=== PATIENT | female | born 1985 | race Caucasian/White ===

== ENCOUNTER 2017-01-28 16:06 | Inpatient (IN) | payer OTHER ==
[~2017-01-28] VITALS: Ht 165.1 cm; Wt 141.7 kg
[2017-01-28] MEDS: metFORMIN 500 MG TAB GTB SCH (02:45)
[~2017-01-28 16:06] MED LIST: ACTIGALL PO; CEFAZOLIN 1 GM INJ ONE; FERR27TA PO; PREN1TAB49 PO; SEVOFLURANE 15 MIN ONE
[2017-01-28 16:23] VITALS: BMI 51.7
[2017-01-28 16:28] VITALS: BP 141/70; PULSE 111; RESP 17
[2017-01-28] MEDS ORDERED: NPH,100V SQ (16:40)
[2017-01-28] MEDS ORDERED: METO-448 PO (16:40)
[2017-01-28] MEDS ORDERED: INSU100C SQ (16:40)
[2017-01-28] MEDS ORDERED: LACTATED RINGER'S 1,000 ML IV SCH (17:03)
[2017-01-28] MEDS ORDERED: CEFAZOLIN 2 GM/50 ML (PMX) 50 ML IV SCH (17:30)
[2017-01-28] MEDS ORDERED: CARBOPROST 250 MCG INJ IM PRN ×2 (17:30→22:30)
[2017-01-28] MEDS ORDERED: OXYTOCIN 30 UNITS/LR 500 ML IV PRN ×2 (17:30→22:30)
[2017-01-28] MEDS ORDERED: MISOPROSTOL 200 MCG TAB PR PRN ×2 (17:30→22:30)
[2017-01-28] MEDS ORDERED: METHYLERGONOVINE 0.2 MG INJ IM PRN (17:30)
[2017-01-28 17:38] LABS: ADD SCAN DIFF NO
[2017-01-28 17:40] LABS: BASOPHILS % 0.3 % (0.0-2.0); EOSINOPHILS % 0.5 % (0.0-7.0); HEMATOCRIT 35.4 % (37.0-47.0); LYMPHOCYTES # 1.9 10^3/ul (0.8-2.9); LYMPHOCYTES % 23.7 % (15.0-51.0); MEAN CORPUSCULAR HEMOGLOBIN 30.3 pg (29.0-33.0); MEAN CORPUSCULAR HGB CONC 33.9 g/dl (32.0-37.0); MEAN CORPUSCULAR VOLUME 89.4 fl (82.0-101.0); MEAN PLATELET VOLUME 9.2 fl (7.4-10.4); MONOCYTE # 0.6 10^3/ul (0.3-0.9); MONOCYTES % 7.4 % (0.0-11.0); NEUTROPHIL # 5.3 10^3/ul (1.6-7.5); NEUTROPHILS % 67.5 % (39.0-77.0); PLATELET COUNT 368 10^3/UL (140-415); RED BLOOD COUNT 3.96 10^6/ul (4.20-5.40); RED CELL DISTRIBUTION WIDTH 13.2 % (11.5-14.5); WHITE BLOOD COUNT 7.9 10^3/ul (4.8-10.8)
[2017-01-28 17:53] LABS: ALBUMIN 3.4 g/dl (3.3-4.9); POTASSIUM 4.4 mmol/L (3.5-5.1)
[2017-01-28 17:54] LABS: INR 0.94; PROTIME 12.6 Sec (12.2-14.2)
[2017-01-28 17:55] LABS: CREATININE 0.63 mg/dl (0.44-1.00)
[2017-01-28 17:56] LABS: BILIRUBIN,INDIRECT 0.1 mg/dl (0-1.1); BILIRUBIN,TOTAL 0.1 mg/dl (0.2-1.3); TOTAL PROTEIN 6.8 g/dl (6.1-8.1); URIC ACID 5.2 mg/dl (3.1-7.9)
--- NOTE | 2017-01-28 17:56 | TRIAGE ---
OB Triage Datetime Report Generated by CPN: 01/28/2017 17:55 Datetime: 01/28/2017 17:31 Labor Evaluation Frequency: 2-7 Monitor Mode: External Duration (sec)2399: 80-100 Quality: Moderate Pattern: Normal: <= 5 Contractions in 10 Minutes Resting Tone [place]: Relaxed Heart Rate FHR Baseline Rate: 145 Monitor Mode: External US Variability: Moderate 6-25 bpm Accelerations: 15X15 Decelerations: None Category: Category I Pain Assessment Pain Scale: 8 Pain Presence: Intermittent Pain Type: Contraction Pain Location: Abdomen Pain Goal: 3 Datetime: 01/28/2017 16:35 Vaginal Exam Dilatation (cms): 0.5 Exam By: [facility] Datetime: 10/05/2016 12:22 Time of Arrival: 01/28/2017 16:05 EGA: 38.5 Arrived By: Ambulatory Arrived From: Home Chief Complaint: pt. came to hospital c/o vag bleeding started an hour ago Movement: Present Contractions: Irregular Rupture of Membranes: Denies Vaginal Discharge: Denies Recent Sexual Intercouse: Denies Abdominal Trauma: Not Applicable Patient Complaints: Contractions; Other Initial Plan: R/O LABOR Datetime: 10/05/2016 10:33 EGA: 22.2 Fall Risk Assessment Fall Score: 0 Fall Risk Score Definition: No Risk: No action required
[2017-01-28 17:57] LABS: PARTIAL THROMBOPLASTIN TIME 27.8 Sec (25.0-35.0)
[2017-01-28 18:17] VITALS: Ht 165.1 cm; Wt 141.7 kg
[2017-01-28] MEDS ORDERED: ONDANSETRON 4 MG INJ ONE (19:20)
[2017-01-28] MEDS ORDERED: CITRIC ACID/NA CITRATE 30 ML CUP ONE (19:21)
[2017-01-28] MEDS ORDERED: METOCLOPRAMIDE 10 MG INJ ONE (19:21)
[2017-01-28] MEDS ORDERED: LACTATED RINGER'S 1,000 ML IV ONE (19:24)
[2017-01-28] MEDS ORDERED: ONDANSETRON 4 MG INJ IV ONE (19:30)
[2017-01-28] MEDS ORDERED: METOCLOPRAMIDE 10 MG INJ IV ONE (19:30)
[2017-01-28] MEDS ORDERED: CITRIC ACID/NA CITRATE 30 ML CUP PO ONE (19:30)
[2017-01-28] MEDS ORDERED: CEFAZOLIN 3 GM in DEXTROSE 5% 100 ML IV SCH (19:30)
--- NOTE | 2017-01-28 20:38 | HP ---
Date/Time of Note Date/Time of Note DATE: 01/28/17 TIME: 20:21 OB - History Hx of Present Free Text/Dictation 31 years old [id number] IUP at 38 weeks and 5 days with care with NEV and history of section x 1, presented with complaint of uterine contractions. Her antepartum course was complicated by: 1. GDM type 2 ,on insulin. Current Blood sugar 69 2. Morbid obesity 3. Maternal tachycardia , on Metoprolol 4. Obstructive apnea Estimated Due Date: Feb 06, 2017 : 3 Para: 1 Spontaneous : 0 Therapeutic : 0 Care: Good Care Obstetrical Complications: Gestational Diabetes Other Concerns: Morbid obesity GDM A2. on insulin, takes 36 units Humulog before breask fast and 70 units Humulin am., OM dosage: 36 Humolin and 36 units of Humolin Past Family/Social History * Past Medical, Surgical, Family and Obstetric Histories reviewed from chart. OB Admission Exam Vital Signs Vital Signs Vital Signs Date Time Temp Pulse Resp B/P Pulse Ox O2 Delivery O2 Flow Rate FiO2 01/28/17 16:28 98.3 111 17 141/70 Physical Exam HEENT: WNL Heart: Rhythm Normal Lungs: Clear Abdomen: WNL Extremities: Edema (3+ BL lower extremity edema) Cervical Dilatation: Fingertip Effacement: 0% Station: -3 Membranes: Intact Heart Rate: 120's Accelerations: Accelerations Present Decelerations: No Decelerations Contractions on Admission: < 5 Minutes Apart Intensity: Moderate Last 72 hours Lab Results CBC & BMP 01/28/17 17:20 Liver Function Test 01/28/17 17:20 Alanine Aminotransferase (ALT/SGPT) 34 Albumin 3.4 Alkaline Phosphatase 155 H Aspartate Amino Transf (AST/SGOT) 30 Direct Bilirubin 0.00 Total Protein 6.8 OB Assessment/Plan Other Assessment: IUP at 38 years old and 5 days History of Cesaran section x 1 Uterine contractions. Desires repeat C/S Morbid obesity GDM, A2, on insulin Maternal tachycardia, on Metoprolol,. stable and asymptomatic ZARINA, Asymptomatic Other plan: Risks and benefits of section including risk of infection, bleeding, damage to adjacent structures including bowel and bladder and risk of blood transfusion including but not limited to blood borne infections including HIV. Hepatatis B and C and transfusion reactions discussed with the patient, informed consent obtained. All questions were answered. OR, Anesthesia notified. Ancef 3 gram IV due to large BMI. CHRISTIAN ALMONTE MD Jan 28, 2017 20:31
[2017-01-28] MEDS ORDERED: PROPOFOL 20 ML ONE (20:40)
[2017-01-28] MEDS ORDERED: SUCCINYLCHOLINE CHLORIDE 100 MG/5 ML SYG IV ONE (20:40)
[2017-01-28] MEDS ORDERED: LIDOCAINE 2% (SDV) 5 ML INJ ONE (20:40)
[2017-01-28] MEDS ORDERED: LIDOCAINE 4% CR ONE (20:45)
[2017-01-28] MEDS ORDERED: ROCURONIUM 50 MG INJ ONE (20:58)
[2017-01-28] MEDS ORDERED: FENTAnyl 50 MCG/ML VIAL ONE (21:24)
[2017-01-28] MEDS ORDERED: KETAMINE 500 MG INJ ONE (21:38)
[2017-01-28] MEDS ORDERED: MIDAZOLAM 1 MG/ML 2 ML INJ ONE (21:40)
[2017-01-28] MEDS ORDERED: KETOROLAC 30 MG INJ ONE (21:52)
[2017-01-28] MEDS ORDERED: PHENYLephrine (100 MCG/ML) 5ML SYG ONE (21:54)
[2017-01-28] MEDS ORDERED: GLYCOPYRROLATE 0.4 MG INJ ONE (21:56)
[2017-01-28] MEDS ORDERED: NEOSTIGMINE 3 MG/3 ML SYRINGE ONE (21:56)
[2017-01-28] MEDS ORDERED: METOPROLOL 5 MG INJ ONE (22:17)
[2017-01-28] MEDS: LACTATED RINGER'S 1,000 ML IV SCH (22:28)
[2017-01-28] MEDS ORDERED: LANOLIN 7 GM TUBE TOP PRN (22:30)
[2017-01-28] MEDS ORDERED: ACETAMINOPHEN/CODEINE #3 TAB PO PRN (22:30)
--- NOTE | 2017-01-28 22:42 | OPR ---
Operative Report Planned Procedure Free Text/Dictation 31 years old with history of prior section x 1 and at 38 + weeks and uterine contractions, presented with painful contractions and candidated for Repeat section and BTL she had signed the consent for BTL during her visits. Procedure date Jan 28, 2017 Procedure(s) Repeat section and BTL Performed by: CHRISTIAN ALMONTE MD Assisting provider: SUMMER MERRITT MD Anesthesiologist: GABRIEL LEAL MD Pre-procedure diagnosis IUP at 38 + weeks History of section x 1 Uterine contractions Procedure Description After discussion with the patient about the risks and benefits of the procedure including risk for infection, bleeding, damage to adjacent structures including bowel and bladder and risk for transfusion reactions including blood borne infections including HIV, Hepatitis B and C and transfusion reactions discussed. Risks for BTL including risk for failure and risk for Ectopic in case of failure discussed. Patient verbalized understanding. Under satisfactory General anesthesia, the patient was prepped and draped and placed in a supine position, tilted to the left. Pfannenstiel incision was made.carried through the subcutaneous tissue. Bleeders brought under control with electrocautery. Fascia incised to the length of the incision. Rectus muscles from the fascia, divided midline. Peritoneum exposed, entered through a transverse incision. Exploration of abdomen revealed gravid uterus. Bladder flap was developed. Transverse incision was made in the lower segment of the uterus. Amniotic sac ruptured. thin amniotic fluid noted. [] Nasal oropharyngeal suction was performed. The baby was handed to the team for immediate attention. The placenta was delivered manually intact. Uterine cavity was cleaned with wet sponge and drainage established. Uterus closed in 2 layers using [1-0 Monocryl ] in continuous fashion. Peritoneal cavity irrigated with warm saline. Sponge, needle and instrument count reported to be correct. Abdominal peritoneum closed with [2-0] continuously. Rectus muscle approximated with 2-0 vicryl . Fascia closed with 1-0 and skin closed with jaquelin. Estimated blood loss 1200 mL. BTL performed using [place] technique. Excellent Hemostasis performed. Post-Procedure Findings: Live Baby Boy, Apgars 8 and 9[] and [], weight [10 lb], position [Cephalic] presentation. Tight nuchal cord x2. Specimen removed: Yes Complications: None Pt Condition post procedure: stable Disposition: PACU Physician Certification I, the undersigned physician, hereby certify that I have discussed the procedure described in this consent form with this patient (or the patient's legal insurance service representative), including: * The risk and benefits of the procedure; * Any adverse reactions that may reasonably be expected to occur; * Any alternative efficacious methods of treatment which may be medically viable ; * The potential problems that may occur during recuperation; * Potential for blood transfusion and associated risks/benefits; and * Any research or economic interest I may have regarding this treatment. I further certify that the patient/legally responsible person was encouraged to ask question and that all questions were answered. CHRISTIAN ALMONTE MD Jan 28, 2017 22:42
[2017-01-28] MEDS ORDERED: MEPERIDINE 50 MG INJ ONE (22:49)
[2017-01-28] MEDS ORDERED: OXYCODONE/ACETAMINOPHEN (5/325) TAB PO PRN ×2 (23:00)
[2017-01-28] MEDS ORDERED: MEPERIDINE 25 MG INJ IV PRN (23:00)
[2017-01-28] MEDS ORDERED: ZOLPIDEM 5 MG TAB PO PRN (23:00)
[2017-01-28] MEDS ORDERED: DIPHENHYDRAMINE 50 MG INJ IV PRN ×2 (23:00)
[2017-01-28] MEDS ORDERED: HYDROmorphONE 1 MG/ML SYG IV PRN ×2 (23:00)
[2017-01-28] MEDS ORDERED: NALOXONE (0.4 MG/ML) INJ IV PRN (23:00)
[2017-01-28] MEDS ORDERED: KETOROLAC 30 MG INJ IV PRN (23:00)
[2017-01-28] MEDS ORDERED: LABETALOL HCL 20MG INJ IV PRN (23:00)
[2017-01-28] MEDS ORDERED: INSULIN ASPART [NOVOLOG] 3 ML PEN SC ONE (23:00)
[2017-01-28] MEDS ORDERED: HYDROmorphONE (0.2 MG/ML) 10ML SYG IV PRN ×2 (23:00)
[2017-01-28] MEDS ORDERED: METOCLOPRAMIDE 10 MG INJ IV PRN (23:00)
[2017-01-28] MEDS ORDERED: PROCHLORPERAZINE 10 MG INJ IV PRN (23:00)
[2017-01-28] MEDS ORDERED: ENOXAPARIN 40 MG/0.4 ML SYG SC ONE (23:00)
[2017-01-28] MEDS ORDERED: TRIMETHOBENZAMIDE 100 MG/ML VIAL IM PRN (23:00)
[2017-01-28] MEDS ORDERED: ONDANSETRON 4 MG INJ IV PRN ×2 (23:00)
[2017-01-28] MEDS ORDERED: FENTAnyl 50 MCG/ML VIAL IV PRN (23:00)
[2017-01-28] MEDS ORDERED: hydrALAzine 20 MG INJ IV PRN (23:00)
[2017-01-28] MEDS: OXYTOCIN 30 UNITS/LR 500 ML IV SCH (23:46)
[2017-01-29] VITALS (7 sets, daily range): BP systolic 100–138; BP diastolic 56–75; PULSE 86–111; RESP 20–21
[2017-01-29] MEDS: HYDROmorphONE 0.2 MG/ML PCA IV SCH ×2 (00:06→09:01)
[2017-01-29] MEDS: IBUPROFEN 600 MG TAB PO SCH ×4 (02:41→18:00)
[2017-01-29] MEDS: OXYTOCIN 30 UNITS/LR 500 ML IV SCH (04:00)
[2017-01-29] MEDS: ACCU-CHEK XX SCH ×2 (08:00→20:05)
[2017-01-29] MEDS: LACTATED RINGER'S 1,000 ML IV SCH ×3 (09:20→22:28)
[2017-01-29] MEDS: metFORMIN 500 MG TAB GTB SCH ×2 (09:20→18:04)
[2017-01-29] MEDS: METOPROLOL 25 MG TAB PO SCH ×2 (09:46→21:38)
[2017-01-29 13:00] LABS: ADD SCAN DIFF NO
[2017-01-29 13:06] LABS: BASOPHILS % 0.2 % (0.0-2.0); EOSINOPHILS % 0.1 % (0.0-7.0); HEMATOCRIT 29.9 % (37.0-47.0); HEMOGLOBIN 9.7 g/dl (12.0-16.0); LYMPHOCYTES % 10.7 % (15.0-51.0); MEAN CORPUSCULAR HEMOGLOBIN 29.5 pg (29.0-33.0); MEAN CORPUSCULAR HGB CONC 32.4 g/dl (32.0-37.0); MEAN CORPUSCULAR VOLUME 90.9 fl (82.0-101.0); MEAN PLATELET VOLUME 9.1 fl (7.4-10.4); MONOCYTE # 0.6 10^3/ul (0.3-0.9); MONOCYTES % 6.2 % (0.0-11.0); NEUTROPHIL # 7.5 10^3/ul (1.6-7.5); NEUTROPHILS % 82.5 % (39.0-77.0); PLATELET COUNT 265 10^3/UL (140-415); RED BLOOD COUNT 3.29 10^6/ul (4.20-5.40); RED CELL DISTRIBUTION WIDTH 13.6 % (11.5-14.5); WHITE BLOOD COUNT 9.1 10^3/ul (4.8-10.8)
--- NOTE | 2017-01-29 14:10 | PN ---
Date/Time of Note Date/Time of Note DATE: 01/29/17 TIME: 14:07 OB Subjective Subjective Subjective Post day 1 Afebrile, abdomen soft weak bowel sounds lochia normal ambulation recommended extremity normal, advanced diet when bowel sounds active or patient passing flatus ESTRELLA HEBERT MD Jan 29, 2017 14:10
[2017-01-29] MEDS ORDERED: GLUCOSE GEL 15 GRAM TUBE BUCCAL PRN (14:30)
[2017-01-29] MEDS ORDERED: GLUCAGON 1 MG INJ IM PRN (14:30)
[2017-01-29] MEDS ORDERED: DEXTROSE 50% 50 ML SYRINGE IV PRN ×2 (14:30)
[2017-01-29] MEDS ORDERED: GLUCOSE GEL 15 GRAM TUBE PO PRN ×2 (14:30)
[2017-01-29] MEDS ORDERED: metFORMIN 500 MG TAB GTB SCH (18:00)
[2017-01-29] MEDS ORDERED: ACCU-CHEK XX SCH (21:00)
[2017-01-30] MEDS: IBUPROFEN 600 MG TAB PO SCH ×5 (00:04→23:53)
[2017-01-30 04:57] VITALS: BP 123/75; PULSE 85; RESP 20
[2017-01-30] MEDS: ACCU-CHEK XX SCH ×4 (06:00→20:43)
[2017-01-30] MEDS: LACTATED RINGER'S 1,000 ML IV SCH ×2 (06:28→12:29)
[2017-01-30 08:00] VITALS: BP 109/56; PULSE 100; RESP 18
[2017-01-30] MEDS: METOPROLOL 25 MG TAB PO SCH ×2 (09:04→21:41)
--- NOTE | 2017-01-30 14:58 | PN ---
Date/Time of Note Date/Time of Note DATE: 01/30/17 TIME: 14:55 OB Subjective Subjective Subjective Post day 2 Afebrile vital signs stable abdomen soft bowel sounds present lochia moderate no bowel movement yet extremity normal fleets enema recommended. ESTRELLA HEBERT MD Jan 30, 2017 14:58
[2017-01-30 15:30] VITALS: BP 115/54; PULSE 87; RESP 18
[2017-01-30] MEDS: metFORMIN 500 MG TAB GTB SCH (17:08)
[2017-01-30 19:30] VITALS: BP 125/77; PULSE 77; RESP 20
[2017-01-31 04:09] VITALS: BP 128/69; PULSE 79; RESP 20
[2017-01-31] MEDS: ACCU-CHEK XX SCH ×2 (06:00→10:05)
[2017-01-31] MEDS: IBUPROFEN 600 MG TAB PO SCH ×2 (06:05→12:35)
[2017-01-31 08:20] VITALS: BP 117/65; PULSE 83; RESP 18
[2017-01-31] MEDS ORDERED: DIPHTH/TET/ACEL PERTUSS (ADULT) 0.5 ML VIAL IM* ONE (09:00)
[2017-01-31] MEDS ORDERED: MEASLES,MUMPS,RUBELLA VACCINE INJ SC* ONE (09:00)
[2017-01-31] MEDS: METOPROLOL 25 MG TAB PO SCH (09:10)
--- NOTE | 2017-01-31 12:54 | DS ---
Date/Time of Note Date/Time of Note DATE: 01/31/17 TIME: 12:52 Obstetrical Discharge Record Final Diagnosis Final Diagnosis: Term delivered Section Section: Repeat Condition on Discharge Physical Assessment Last Vitals: Afebrile vital signs a stable abdomen soft uterus firm incision dry had normal bowel movement extremity normal advised to make appointment with the clinic to DC jaquelin in 4 days post home care of wound into the patient prescription of analgesics Motrin and Tylenol Voiding: Yes Bowel Movement: Yes Breast: Soft, non-tender, Filling Fundus: Firm Abdomen and Incision: Healing well dry Calf Tenderness: No Patient Condition: Good ESTRELLA HEBERT MD Jan 31, 2017 12:54
== END 2017-01-31 14:40 | disposition home or self-care (01) | DRG 765 ==
LOC: L-D 16:06 → OBT 16:06 → L-D 17:10 → OBT 17:10 → L-D 20:01 → PP1 01-29 01:44
PROVIDERS: ADMIT Obstetrics & Gynecology; ATTEND Obstetrics & Gynecology
PROC: 0UL70ZZ Occlusion of Bilateral Fallopian Tubes, Open Approach (ICD-10-PCS; 2017-01-28)
PROC: 10D00Z1 Extraction of Products of Conception, Low, Open Approach (ICD-10-PCS; principal; 2017-01-28 20:30)
DX: O24.429 Gestational diabetes mellitus in childbirth, unspecified control (principal); Z68.43 Body mass index [BMI] 50.0-59.9, adult; O99.214 Obesity complicating childbirth; O34.211 Maternal care for low transverse scar from previous cesarean delivery; R00.0 Tachycardia, unspecified; E66.01 Morbid (severe) obesity due to excess calories; G47.33 Obstructive sleep apnea (adult) (pediatric); Z30.2 Encounter for sterilization; Z3A.38 38 weeks gestation of pregnancy; Z37.0 Single live birth
CPT/HCPCS: 80053; 82962; 84560; 85025; 85384; 85610; 85730; 86592; 86900; 86901; 87340; 88302; 90715; 94760; G0463; J0330; J0690; J1170; J1650; J1815; J1885; J2175; J2250; J2370; J2405; J2590; J2710; J2765; J3010; J7120

== ENCOUNTER 2017-02-05 17:19 | Emergency (ER) | payer OTHER ==
[~2017-02-05] VITALS: Wt 136.5 kg
[~2017-02-05 17:19] MED LIST changes: -ACTIGALL PO; -CEFAZOLIN 1 GM INJ ONE; +METO-448 PO; -SEVOFLURANE 15 MIN ONE
--- NOTE | 2017-02-05 18:55 | ERD ---
ER Documentation Chief Complaint Date/Time DATE: 02/05/17 TIME: 18:49 Chief Complaint LEFT FOOT SWELLING POST C SECT 1WK AGO. NO TRAUMA SENT BY MD FOR R/O DVT HPI This pleasant 31-year-old female presents to emergency department for left lower extremity swelling, rule out DVT. Patient gave January 28, 2017, section at 38 weeks, patient reports a healthy baby boy with at her gynecology office for follow-up/staple removal and reported leg swelling and tightness. Patient was sent over to emergency department for evaluation. Patient denies any shortness of breath, dyspnea, or chest pain. ROS All systems reviewed and are negative except as per history of present illness. Medications Home Meds Reported Medications Metoprolol Tartrate* (Lopressor*) 25 Mg Tab, 25 MG PO BID, #60 TAB 01/28/17 Ferrous Sulfate (Iron) 1 Tab Tablet, 1 TAB PO DAILY, #1 11/11/12 Vits W-Ca,Fe,Fa(<1MG) () 1 Tab Tablet, 1 TAB PO DAILY, #1 11/11/12 Discontinued Reported Medications Insulin NPH Human Isophane (Humulin N) 100 Unit/1 Ml Vial, 36 UNIT SQ, VIAL 01/28/17 Insulin Lispro (Humalog) 100 Unit/1 Ml Cartridge, 36 UNIT SQ 01/28/17 Insulin Lispro (Humalog) 100 Unit/1 Ml Cartridge, 100 UNIT SQ 01/28/17 Insulin NPH Human Isophane (Humulin N) 100 Unit/1 Ml Vial, 70 UNIT SQ, VIAL 01/28/17 [Actigall] No Conflict Check, PO TID, #1 11/11/12 Allergies Allergies: Coded Allergies: No Known Allergies (Verified Allergy, Unknown, 10/05/16) PMhx/Soc History of Surgery: Yes (C sectionx2 ) Anesthesia Reaction: No Hx Neurological Disorder: No Hx Respiratory Disorders: No Hx Cardiac Disorders: Yes (tachycardia) Hx Psychiatric Problems: No Hx Miscellaneous Medical Probl: Yes (Hyperlipidemia) Hx Alcohol Use: No Hx Substance Use: No Hx Tobacco Use: No Smoking Status: Never smoker Physical Exam Vitals Vital Signs Date Time Temp Pulse Resp B/P Pulse Ox O2 Delivery O2 Flow Rate FiO2 02/06/17 00:49 98.2 89 16 130/72 98 Room Air 02/05/17 17:37 97.7 91 20 132/61 100 Vitals stable, nursing notes reviewed Physical Exam Const: No acute distress, obese female Head: Atraumatic Eyes: Normal Conjunctiva ENT: Normal External Ears, Nose and Mouth. Neck: Full range of motion..~ No meningismus. Resp: Clear to auscultation bilaterally Cardio: Regular rate and rhythm, no murmurs Abd: Soft, non tender, non distended. Normal bowel sounds Skin: No petechiae or rashes Back: No midline or flank tenderness Ext: Lower Extremity -left Skin: Skin is tight, +2 pitting edema, positive Homans sign produces pain left posterior calf Compartments: Soft Motor: Full active range of motion Sensation: Intact to light touch Bones: Joints: Pulses/Perfusion: [Trace DP, Capillary refill < 2 seconds] Neur: Awake and alert Psych: Normal Mood and Affect Result Diagram: 02/05/179 02/05/171858 Results 24 hrs Laboratory Tests Test 02/05/17 18:59 02/05/17 21:29 White Blood Count 6.810^3/ul Red Blood Count 3.4210^6/ul Hemoglobin 10.0g/dl Hematocrit 31.5% Mean Corpuscular Volume 92.1fl Mean Corpuscular Hemoglobin 29.2pg Mean Corpuscular Hemoglobin Concent 31.7g/dl Red Cell Distribution Width 13.1% Platelet Count 00925^3/UL Mean Platelet Volume 8.7fl Neutrophils % 65.4% Lymphocytes % 25.4% Monocytes % 5.6% Eosinophils % 2.3% Basophils % 0.6% Nucleated Red Blood Cells % 0.0/100WBC Neutrophils # 4.510^3/ul Lymphocytes # 1.710^3/ul Monocytes # 0.410^3/ul Eosinophils # 0.210^3/ul Basophils # 0.010^3/ul Nucleated Red Blood Cells # 0.010^3/ul Prothrombin Time 13.4Sec Prothrombin Time Ratio 1.0 INR International Normalized Ratio 1.02 Activated Partial Thromboplast Time 30.3Sec Sodium Level 142mmol/L Potassium Level 3.8mmol/L Chloride Level 107mmol/L Carbon Dioxide Level 26mmol/L Anion Gap 13 Blood Urea Nitrogen 13mg/dl Creatinine 0.58mg/dl Glucose Level 104mg/dl Calcium Level 8.8mg/dl Bedside Urine pH (LAB) 6.0 Bedside Urine Protein (LAB) 1+ Bedside Urine Glucose (UA) Negative Bedside Urine Ketones (LAB) Negative Bedside Urine Blood 3+ Bedside Urine Nitrite (LAB) Negative Bedside Urine Leukocyte Esterase (L Trace Current Medications Medications (Trade) Dose Ordered Sig/[place]anta Route PRN Reason Start Time Stop Time Status Last Admin Dose Admin Acetaminophen (Tylenol Tab) 650 mg ONCE ONCE PO 02/05/17 19:00 02/05/17 19:01 DC 02/05/17 19:01 IV Flush 10 ml 10 ml STK-MED ONCE .ROUTE 02/05/17 22:00 02/05/17 22:01 DC 02/05/17 22:55 Sodium Chloride (NS) 100 ml @ ud STK-MED ONCE .ROUTE 02/05/17 22:00 02/05/17 22:01 DC 02/05/17 22:55 Iodixanol (Visipaque Locm) 100 ml STK-MED ONCE .ROUTE 02/05/17 22:00 02/05/17 22:01 DC 02/05/17 22:55 Iodixanol (Visipaque Locm) 100 ml STK-MED ONCE .ROUTE 02/05/17 22:00 02/05/17 22:01 DC Iodixanol (Visipaque Locm) 50 ml STK-MED ONCE .ROUTE 02/05/17 22:00 02/05/17 22:01 DC 02/05/17 22:55 Procedures/MDM Wells criteria score is 2 pints, this is high risk, patient has just given via section on January 28, PROCEDURE: Chest x-ray CLINICAL INDICATION: Cough and fever TECHNIQUE: Chest 2 views COMPARISON: 11/28/2016 FINDINGS: The heart is normal in size. The pulmonary vessels are normal in caliber. The lungs are clear. The costophrenic angles are sharp. The visualized bony thorax is unremarkable. IMPRESSION: No acute cardiopulmonary disease. OCEDURE: CT angiogram runoff of the lower extremities CLINICAL INDICATION: section 01/28/2017. Lower extremity swelling. TECHNIQUE: CT angiogram runoff of the abdomen, pelvis and lower extremities from the diaphragm to the toes is performed following the uneventful intravenous injection of 125 cc Visipaque 320. The exam is reconstructed at 2.5 mm intervals with coronal and sagittal reformatted images also submitted to the PACS for review. COMPARISON: Lower extremity ultrasound 02/05/2017 FINDINGS: ARTERIAL FINDINGS: Abdominal aorta: Proximal segment: Normal in caliber measuring and 2 x 1.6 cm without atheromatous or stenosis. Celiac and superior mesenteric axes demonstrate no evidence of occlusion or high-grade stenosis. Renal segment: Moderate atheromatous disease causing a moderate degree of right -sided proximal renal artery stenosis and mild left renal artery stenosis. There is no aneurysm, the maximal dimension 1.8 x 1.6 cm. Moderate atheromatous disease is present. Infrarenal segment: Unremarkable without aneurysm, the maximal dimension 1.3 x 1.3 cm. There is severe atheromatous calcification of the inferior mesenteric artery without occlusion. Iliac systems: Common iliac arteries: Normal and symmetric bilaterally without evidence of occlusion or stenosis, no contrast extravasation is present. External iliac arteries: Normal bilaterally without evidence of contrast extravasation, occlusion or stenosis. Internal iliac arteries: There is normal symmetric enhancement identified within the main and peripheral branches including the uterine and adnexal arteries without contrast extravasation. Also noted are normal bilateral hypogastric arteries. Lower extremities: Right: Normal enhancement of the common femoral, profunda femoral and superficial femoral arteries without evidence of occlusion or high-grade stenosis. There is normal enhancement within the popliteal artery. A normal three-vessel runoff is identified with enhancement of the posterior tibial, anterior tibial, peroneal and dorsalis pedis arteries, the plantar arch is unremarkable Left: The common femoral and profunda femoral arteries are normal as is the superficial femoral artery without occlusion or stenosis. The popliteal artery is unremarkable. There is enhancement within the posterior tibial, anterior tibial and peroneal arteries with enhancement seen of the dorsalis pedis artery at the anterior ankle. Enhancement of the plantar arch is visible. NON ARTERIAL FINDINGS: The liver, gallbladder, pancreas and spleen are unremarkable. The adrenal glands and kidneys show no abnormalities. The uterus is enlarged consistent with the provided history recently gravid state. There is no evidence of adnexal mass. There is some stranding of the fat anterior to the uterus. Some stranding adjacent to the urinary bladder cannot exclude cystitis. There is no small bowel obstruction or ileus, the gastrointestinal system is unremarkable. Within the lower anterior abdominal wall there is a centrally hypodense crescentic area measuring 3 x 11 cm less likely an intramuscular postoperative seroma or hematoma, abscess is a possibility. Some stranding of the subcutaneous fat involving the inferior abdominal wall pannus is present. No osseous abnormality is identified. The venous structures are not opacified, no gross evidence of pelvic vein thrombus is identified RPTAT:HJJR IMPRESSION: 1. Normal three-vessel runoff of the lower extremities bilaterally. 2. No evidence of arterial abnormality within the pelvis or thighs. 3. Crescentic collection in the lower anterior abdominal wall consistent with postoperative seroma or hematoma, abscess is less likely, the abnormality 3 x 11 cm. 4. Mild stranding of the fat adjacent to the urinary bladder unable to exclude cystitis, consider urinalysis correlation. 5. No evidence of obvious pelvic vein thrombus on this exam a dedicated for evaluation of the arterial system. 6. Uterine enlargement is consistent with the recently gravid state. 7. No contrast extravasation is identified to suggest active bleeding site. RPTAT: HH .Ricky Cottrell MD, MD Date Time Electronically viewed and signed by .Ricky Cottrell MD, on 02/05/2017 18:37 .W/ CC: SOLEDAD ESTRELLA This pleasant obese 31-year-old female day 9. Was sent over for evaluation of left lower extremity edema, rule out DVT. Patient was at primary care physician's office having jaquelin removed when lower extremity edema noted. Patient has +2 pitting edema in her left leg, right leg is +1, bilateral peripheral pulses DP/PT are trace. Wells score is high risk for DVT. Doppler study shows no sonographic evidence for left lower extremity deep vein thrombosis. Case discussed with , given high risk status CT angiogram with runoff lower extremities was obtained to rule out a clot higher up in the vasculature. Patient is breast-feeding, she was told to pump and discard breast milk for the next 12 hours. Patient verbalizes understanding and agrees with precautions. Impression shows normal three-vessel runoff of the lower extremities bilaterally no evidence of arterial abnormality within the pelvis or thighs. Crescentic collection in the lower anterior abdominal wall consistent with post palliative seroma or hematoma abscess is less likely documented 3 x 11 cm. This is not concerning related to section. Mild stranding of the fat adjacent to the urinary bladder and able to exclude cystitis consider urinalysis with correction, urinalysis was obtained with trace leukocytes urinary tract infection unlikely at this time. Uterine enlargement is consistent with recent state. These findings were discussed with supervising physician Dr. Coyle. DVT has been excluded. I feel patient can be monitored in the outpatient setting. I feel the patient is stable for discharge at this time. I have discussed results, examination findings, the treatment plan with the patient and family present prior to discharge. Indications for emergent reevaluation, side effects of medication were also discussed. All questions were answered. Patient verbalizes understanding and agrees with plan of care. Departure Diagnosis: Primary Impression: Edema of left lower extremity Condition: Good Patient Instructions: Peripheral Edema, Unilateral Additional Instructions: Thank you for for coming to [facility] for your care today. Please ask your nurse or provider if you have questions about your care today and do not leave until all your questions have been answered. Please use any medications given as directed and follow-up with your doctor (or the doctor you were referred to) in the next 2-3 days. If you do not have a primary care doctor you may follow up at the [facility] (listed below). You may also use motrin and tylenol as needed for fever and/or pain unless instructed otherwise by your provider or nurse. Indications for more urgent follow-up have been discussed, but you may return to the Emergency Department at ANY time for any worrisome or worsening symptoms. If you have abdominal pain, please know that no test or exam you received is perfect and you should follow up within 8 hours for continued pain. If you had any imaging studies today, such as an X-Ray or CT Scan, these studies will be reviewed later by a radiologist. You will be called if there are important findings that were not identified today, so make sure the contact information you provided at registration is correct. If you received any narcotic pain control medicine today, such as Vicodin, Morphine or Dilaudid, your coordination and judgment may be affected for a number of hours. Please do not drive or operate heavy machinery, and you may want someone to assist you at home. If you were given a prescription for narcotic medication, be aware that it is very addictive- use sparingly and only if necessary. MARYANN ESTRELLAODY Feb 05, 2017 18:55
[2017-02-05] MEDS ORDERED: ACETAMINOPHEN 325 MG TAB PO ONE (19:00)
[2017-02-05 19:13] LABS: ADD SCAN DIFF NO
[2017-02-05 19:15] LABS: BASOPHILS % 0.6 % (0.0-2.0); EOSINOPHILS # 0.2 10^3/ul (0.0-0.5); EOSINOPHILS % 2.3 % (0.0-7.0); HEMATOCRIT 31.5 % (37.0-47.0); LYMPHOCYTES # 1.7 10^3/ul (0.8-2.9); LYMPHOCYTES % 25.4 % (15.0-51.0); MEAN CORPUSCULAR HEMOGLOBIN 29.2 pg (29.0-33.0); MEAN CORPUSCULAR HGB CONC 31.7 g/dl (32.0-37.0); MEAN CORPUSCULAR VOLUME 92.1 fl (82.0-101.0); MEAN PLATELET VOLUME 8.7 fl (7.4-10.4); MONOCYTE # 0.4 10^3/ul (0.3-0.9); MONOCYTES % 5.6 % (0.0-11.0); NEUTROPHIL # 4.5 10^3/ul (1.6-7.5); NEUTROPHILS % 65.4 % (39.0-77.0); PLATELET COUNT 520 10^3/UL (140-415); RED BLOOD COUNT 3.42 10^6/ul (4.20-5.40); RED CELL DISTRIBUTION WIDTH 13.1 % (11.5-14.5); WHITE BLOOD COUNT 6.8 10^3/ul (4.8-10.8)
--- NOTE | 2017-02-05 19:21 | RADRPT ---
PROCEDURE: US Lower extremity Venous. CLINICAL INDICATION: Pain and swelling TECHNIQUE: Multiple sonographic images of the left lower extremity deep venous system was obtained utilizing grayscale, color-flow, compressive sonography and doppler imaging with augmentation. The images were reviewed on a PACS workstation. COMPARISON: None. FINDINGS: There is normal compressibility and flow within the left common femoral, deep femoral, superficial f emoral and popliteal veins. Normal respiratory variation and augmentation is seen. There is normal color flow and compressibility of left posterior tibial and peroneal veins IMPRESSION: No sonographic evidence for left lower extremity deep venous thrombosis. RPTAT: HH .Ricky Cottrell MD, MD Date Time Electronically viewed and signed by .Ricky Cottrell MD, on 02/05/2017 19:20 .W/
[2017-02-05 19:30] LABS: INR 1.02; PARTIAL THROMBOPLASTIN TIME 30.3 Sec (25.0-35.0); PROTIME 13.4 Sec (12.2-14.2)
[2017-02-05 21:30] LABS: URINE BLOOD (Dip) POC 3+ (NEGATIVE)
[2017-02-05 21:30] LABS: POTASSIUM 3.8 mmol/L (3.5-5.1)
[2017-02-05 21:33] LABS: CREATININE 0.58 mg/dl (0.44-1.00)
[2017-02-05 21:34] LABS: CALCIUM 8.8 mg/dl (8.4-10.2)
[2017-02-05] MEDS ORDERED: IODIXANOL LOCM 100 ML BTL ONE ×2 (22:00)
[2017-02-05] MEDS ORDERED: SOD CHLORIDE 0.9% 100 ML ONE (22:00)
[2017-02-05] MEDS ORDERED: IODIXANOL LOCM 50 ML BTL ONE (22:00)
--- NOTE | 2017-02-05 23:59 | RADRPT ---
PROCEDURE: CT angiogram runoff of the lower extremities CLINICAL INDICATION: section 01/28/2017. Lower extremity swelling. TECHNIQUE: CT angiogram runoff of the abdomen, pelvis and lower extremities from the diaphragm to the toes is performed following the uneventful intravenous injection of 125 cc Visipaque [id number]. The e xam is reconstructed at 2.5 mm intervals with coronal and sagittal reformatted images also submitted to the PACS for review. COMPARISON: Lower extremity ultrasound 02/05/2017 FINDINGS: ARTERIAL FINDINGS: Abdominal aorta: Proximal segment: Normal in caliber measuring and 2 x 1.6 cm without atheromatous or stenosis. Neeru iac and superior mesenteric axes demonstrate no evidence of occlusion or high-grade stenosis. Renal segment: Moderate atheromatous disease causing a moderate degree of right-sided proximal jordan l artery stenosis and mild left renal artery stenosis. There is no aneurysm, the maximal dimension 1.8 x 1.6 cm. Moderate atheromatous disease is present. Infrarenal segment: Unremarkable without aneurysm, the maximal dimension 1.3 x 1.3 cm. There is se kirk atheromatous calcification of the inferior mesenteric artery without occlusion. Iliac systems: Common iliac arteries: Normal and symmetric bilaterally without evidence of occlusion or stenosis, no contrast extravasation is present. External iliac arteries: Normal bilaterally without evidence of contrast extravasation, occlusion o r stenosis. Internal iliac arteries: There is normal symmetric enhancement identified within the main and perip heral branches including the uterine and adnexal arteries without contrast extravasation. Also note d are normal bilateral hypogastric arteries. Lower extremities: Right: Normal enhancement of the common femoral, profunda femoral and superficial femoral arteries without evidence of occlusion or high-grade stenosis. There is normal enhancement within the poplit eal artery. A normal three-vessel runoff is identified with enhancement of the posterior tibial, an terior tibial, peroneal and dorsalis pedis arteries, the plantar arch is unremarkable Left: The common femoral and profunda femoral arteries are normal as is the superficial femoral brittany ry without occlusion or stenosis. The popliteal artery is unremarkable. There is enhancement withi n the posterior tibial, anterior tibial and peroneal arteries with enhancement seen of the dorsalis pedis artery at the anterior ankle. Enhancement of the plantar arch is visible. NON ARTERIAL FINDINGS: The liver, gallbladder, pancreas and spleen are unremarkable. The adrenal glands and kidneys show no abnormalities. The uterus is enlarged consistent with the pr ovided history recently gravid state. There is no evidence of adnexal mass. There is some strandin g of the fat anterior to the uterus. Some stranding adjacent to the urinary bladder cannot exclude cystitis. There is no small bowel obstruction or ileus, the gastrointestinal system is unremarkable. Within the lower anterior abdominal wall there is a centrally hypodense crescentic area measuring 3 x 11 cm less likely an intramuscular postoperative seroma or hematoma, abscess is a possibility. So me stranding of the subcutaneous fat involving the inferior abdominal wall pannus is present. No osseous abnormality is identified. The venous structures are not opacified, no gross evidence of pelvic vein thrombus is identified RPTAT:HJJR IMPRESSION: 1. Normal three-vessel runoff of the lower extremities bilaterally. 2. No evidence of arterial abnormality within the pelvis or thighs. 3. Crescentic collection in the lower anterior abdominal wall consistent with postoperative seroma o r hematoma, abscess is less likely, the abnormality 3 x 11 cm. 4. Mild stranding of the fat adjacent to the urinary bladder unable to exclude cystitis, consider ur inalysis correlation. 5. No evidence of obvious pelvic vein thrombus on this exam a dedicated for evaluation of the arteri al system. 6. Uterine enlargement is consistent with the recently gravid state. 7. No contrast extravasation is identified to suggest active bleeding site. Physician Ct Date Time Electronically viewed and signed by Physician Ct on 02/05/2017 23:58 JR/
[2017-02-06 00:49] VITALS: BP 130/72; PULSE 89; RESP 16; TEMP 98.2
== END 2017-02-06 00:51 | disposition home or self-care (01) ==
LOC: FTE 17:19
DX: O90.89 Other complications of the puerperium, not elsewhere classified (principal); R22.42 Localized swelling, mass and lump, left lower limb; R50.9 Fever, unspecified
CPT/HCPCS: 75635; 80048; 81003; 85025; 85610; 85730; 93971; Q9967; Z7610